=== PATIENT | female | born 1975 | race Caucasian/White ===

== ENCOUNTER → 2019-04-05 | Outpatient (CLI) | payer BC ==
[~2019-04-05] MED LIST: DICY20 PO; DIPATR PO; HYDACE5 PO; PROM25 PO
== END | disposition home or self-care (01) ==
LOC: LAB EV 12:36 → LAB SHORT 12:36
DX: N39.0 Urinary tract infection, site not specified (principal)
CPT/HCPCS: 87077; 87086; 87186

== ENCOUNTER → 2019-07-29 | Outpatient (CLI) | payer BC | LOC: LAB 14:43 → LAB SHORT 14:43 | DX: N89.8 Other specified noninflammatory disorders of vagina (principal) | CPT/HCPCS: 87070; 87205 ==

== ENCOUNTER → 2020-02-25 | Outpatient (CLI) | payer BC ==
[2020-02-26 14:08] LABS: HPV 16 Negative (Negative); HPV 18 Negative (Negative); HPV OTHER HR TYPES Negative (Negative)
== END | disposition home or self-care (01) ==
LOC: LAB 14:16 → LAB SHORT 14:16
PROVIDERS: Obstetrics & Gynecology
DX: Z12.4 Encounter for screening for malignant neoplasm of cervix (principal)
CPT/HCPCS: 87624; G0123

== ENCOUNTER → 2024-04-05 | Outpatient (CLI) | payer BC | LOC: LAB SHORT 13:23 → LAB 13:23 | DX: R31.9 Hematuria, unspecified (principal) | CPT/HCPCS: 87086 ==